=== PATIENT | female | born 1980 | race Caucasian/White ===

== ENCOUNTER 2021-09-29 12:51 | Inpatient (IN) ==
[2021-09-29 13:31] LABS: Basophils # 0.1 K/mcL (0.0-0.2); Basophils % 0.4 %; Eosinophils # 0.1 K/mcL (0.0-0.6); Eosinophils % 0.9 %; Hemoglobin 13.8 g/dL (11.5-15.4); Immature Granulocytes % 0.6 % (0-4); Lymphocytes # 4.1 K/mcL (0.6-4.6); Lymphocytes % 28.9 %; Mean Corpuscular HGB Conc 32.1 g/dL (31.6-35.5); Mean Corpuscular Hemoglobin 27.4 pg (28.0-33.3); Mean Corpuscular Volume 85.5 fL (83.0-100.0); Mean Platelet Volume 9.1 fL (9.4-12.4); Monocytes # 0.9 K/mcL (0.0-1.3); Monocytes % 6.3 %; Neutrophils # 8.8 K/mcL (1.6-8.9); Platelet Count 538 K/mcL (140-400); Red Blood Count 5.03 M/mcL (3.82-4.97); Red Cell Distribution Width 14.4 % (11.5-14.5); Segmented Neutrophils % 62.9 %; White Blood Count 14.1 K/mcL (4.3-11.1)
[2021-09-29 14:00] LABS: Troponin I 2.04 ng/mL (< 0.04)
[2021-09-29 14:06] LABS: BUN/Creatinine Ratio 10 (6-26); Blood Urea Nitrogen 9 mg/dL (6-20); Calcium 9.9 mg/dL (8.6-10.3); Carbon Dioxide 26 mEq/L (23-29); Chloride 102 mEq/L (98-107); Glucose 125 mg/dL (70-105); Osmolality,Calculated 282 (280-300); Potassium 3.8 mEq/L (3.5-5.1); Sodium 136 mEq/L (136-145); eGFR For African Americans > 60 (> 60); eGFR For Non-African Americans > 60 (> 60)
[2021-09-29] MEDS ORDERED: Aspirin 81 MG TAB.CHEW PO ONE (14:09)
[2021-09-29 14:12] LABS: INR 1.1; Prothrombin Time 12.1 Seconds (9.4-12.1)
[2021-09-29 14:15] LABS: Activated Partial Thrombo Time 33.1 Seconds (26.0-36.0)
[2021-09-29] MEDS ORDERED: *HR* Heparin 5,000 UNIT/ML VIAL IVP ONE (15:02)
[2021-09-29] MEDS ORDERED: *HR* Heparin 5,000 UNIT/ML VIAL IVP PRN ×2 (15:02)
[2021-09-29] MEDS ORDERED: Heparin 25,000UNIT/250ML 1/2NS 25,000 UNIT/250 ML IV.SOLN IVC SCH (15:15)
[2021-09-29 15:48] LABS: Hematocrit 40.2 % (35.3-44.9); Hemoglobin 12.8 g/dL (11.5-15.4); Mean Corpuscular HGB Conc 31.8 g/dL (31.6-35.5); Mean Corpuscular Hemoglobin 27.2 pg (28.0-33.3); Mean Corpuscular Volume 85.5 fL (83.0-100.0); Mean Platelet Volume 9.2 fL (9.4-12.4); Platelet Count 534 K/mcL (140-400); Red Cell Distribution Width 14.1 % (11.5-14.5); White Blood Count 14.6 K/mcL (4.3-11.1)
[2021-09-29 15:53] LABS: INR 1.1; Prothrombin Time 12.1 Seconds (9.4-12.1)
[2021-09-29 15:55] LABS: Heparin anti-factor XA UFH < 0.04 IU/mL (0.30-0.70)
[2021-09-29] MEDS ORDERED: Nitroglycerin 0.4 MG PATCH.TD24 TD ONE (16:00)
[2021-09-29] MEDS ORDERED: Naloxone 0.4 MG/ML INJ IVP PRN (16:25)
[2021-09-29] MEDS ORDERED: Ondansetron 4 MG/2 ML VIAL IVP PRN (16:35)
[2021-09-29] MEDS ORDERED: Perflutren Lipid Microsphere 1.3 ML in 0.9 % Sodium Chloride 8.7 ML IVP PRN (16:51)
[2021-09-29] MEDS: Nitroglycerin 0.4 MG TAB.SUBL SL SCH ×2 (17:05→17:56)
[2021-09-29] MEDS: Nitroglycerin 0.4 MG TAB.SUBL SL PRN ×2 (17:37→17:46)
[2021-09-29] MEDS: Acetaminophen 325 MG TABLET PO PRN (17:37)
[2021-09-29 19:48] LABS: Bilirubin,Urine Negative (Negative); Blood,Urine Negative (Negative); Clarity,Urine Clear (Clear); Color,Urine Light-Yellow (Yellow); Glucose,Urine (UA) Normal (Normal); Ketones,Urine Trace mg/dL (Negative); Leukocyte Esterase,Urine Negative (Negative); Nitrite,Urine Negative (Negative); Protein,Urine Trace mg/dL (Neg-Trace); Specific Gravity,Urine 1.028 (1.010-1.025); Urobilinogen,Urine Normal (Normal)
[2021-09-29] MEDS ORDERED: *HR* Metoprolol 5 MG/5 ML VIAL IVP ONE (21:20)
[2021-09-29] MEDS ORDERED: *HR* FentaNYL (PF) 100 MCG/2 ML VIAL ONE (23:41)
[2021-09-29] MEDS ORDERED: *HR* Midazolam HCl 2 MG/2 ML VIAL ONE (23:42)
[2021-09-29] MEDS ORDERED: Tirofiban 12.5 MG/250ML 12.5 MG/250 ML BAG ONE (23:52)
[2021-09-29] MEDS ORDERED: ISOVUE-370 200 ML INFUS..BTL ONE (23:56)
[2021-09-30] MEDS ORDERED: *HR* Ticagrelor 90 MG TABLET ONE (00:23)
[2021-09-30] MEDS ORDERED: Perflutren Lipid Microsphere 1.3 ML in 0.9 % Sodium Chloride 8.7 ML IVP PRN (00:28)
[2021-09-30] MEDS ORDERED: Tirofiban 12.5 MG/250ML 12.5 MG/250 ML BAG IVC SCH (00:30)
[2021-09-30 01:53] LABS: Basophils # 0.1 K/mcL (0.0-0.2); Basophils % 0.3 %; Eosinophils # 0.1 K/mcL (0.0-0.6); Eosinophils % 0.2 %; Hematocrit 39.5 % (35.3-44.9); Hemoglobin 12.6 g/dL (11.5-15.4); Immature Granulocytes % 0.7 % (0-4); Lymphocytes # 2.3 K/mcL (0.6-4.6); Lymphocytes % 9.8 %; Mean Corpuscular HGB Conc 31.9 g/dL (31.6-35.5); Mean Corpuscular Hemoglobin 27.4 pg (28.0-33.3); Mean Corpuscular Volume 85.9 fL (83.0-100.0); Mean Platelet Volume 9.3 fL (9.4-12.4); Monocytes % 6.3 %; Platelet Count 501 K/mcL (140-400); Red Cell Distribution Width 14.6 % (11.5-14.5); Segmented Neutrophils % 82.7 %
[2021-09-30 01:56] LABS: Monocytes # 1.5 K/mcL (0.0-1.3)
[2021-09-30 02:13] LABS: Alanine Aminotransferase 24 Units/L (7-52); Albumin 3.9 g/dL (3.5-5.7); Albumin/Globulin Ratio 1.5 (1.1-2.2); Alkaline Phosphatase 79 Units/L (34-104); Aspartate Amino Transferase 59 Units/L (13-39); BUN/Creatinine Ratio 11 (6-26); Bilirubin,Total 0.7 mg/dL (0.3-1.0); Blood Urea Nitrogen 11 mg/dL (6-20); Calcium 8.6 mg/dL (8.6-10.3); Carbon Dioxide 19 mEq/L (23-29); Chloride 103 mEq/L (98-107); Chol/HDL Ratio 3.4 (0-4.9); Cholesterol 158 mg/dL (< 200); Globulin 2.6 g/dL (2.4-3.5); Glucose 132 mg/dL (70-105); HDL Cholesterol 46 mg/dL (40-59); LDL Cholesterol,Calculated 80 mg/dL (< 100); Osmolality,Calculated 277 (280-300); Sodium 133 mEq/L (136-145); Total Protein 6.5 g/dL (6.4-8.9); Triglycerides 158 mg/dL (< 150); eGFR For African Americans > 60 (> 60); eGFR For Non-African Americans > 60 (> 60)
[2021-09-30] MEDS ORDERED: *HR* Atropine Sulfate 1 MG/10 ML SYRINGE ONE (02:17)
[2021-09-30] MEDS ORDERED: 0.9 % Sodium Chloride 1,000 ML ONE (02:52)
[2021-09-30 03:52] LABS: Basophils # 0.1 K/mcL (0.0-0.2); Basophils % 0.3 %; Eosinophils % 0.1 %; Hematocrit 35.9 % (35.3-44.9); Hemoglobin 11.5 g/dL (11.5-15.4); Immature Granulocytes % 0.5 % (0-4); Lymphocytes # 1.9 K/mcL (0.6-4.6); Lymphocytes % 10.3 %; Mean Corpuscular Hemoglobin 27.6 pg (28.0-33.3); Mean Corpuscular Volume 86.3 fL (83.0-100.0); Mean Platelet Volume 9.3 fL (9.4-12.4); Monocytes # 1.1 K/mcL (0.0-1.3); Monocytes % 6.1 %; Neutrophils # 15.2 K/mcL (1.6-8.9); Platelet Count 469 K/mcL (140-400); Red Blood Count 4.16 M/mcL (3.82-4.97); Red Cell Distribution Width 14.6 % (11.5-14.5); Segmented Neutrophils % 82.7 %; White Blood Count 18.4 K/mcL (4.3-11.1)
[2021-09-30 04:18] LABS: Alanine Aminotransferase 24 Units/L (7-52); Albumin 3.5 g/dL (3.5-5.7); Albumin/Globulin Ratio 1.4 (1.1-2.2); Alkaline Phosphatase 69 Units/L (34-104); Aspartate Amino Transferase 65 Units/L (13-39); BUN/Creatinine Ratio 11 (6-26); Bilirubin,Total 0.8 mg/dL (0.3-1.0); Blood Urea Nitrogen 10 mg/dL (6-20); Calcium 7.8 mg/dL (8.6-10.3); Carbon Dioxide 20 mEq/L (23-29); Chloride 107 mEq/L (98-107); Globulin 2.5 g/dL (2.4-3.5); Glucose 150 mg/dL (70-105); Osmolality,Calculated 280 (280-300); Sodium 134 mEq/L (136-145); Troponin I 25.06 ng/mL (< 0.04); eGFR For African Americans > 60 (> 60); eGFR For Non-African Americans > 60 (> 60)
[2021-09-30] MEDS ORDERED: Nitroglycerin 0.4 MG PATCH.TD24 TD SCH (07:30)
[2021-09-30] MEDS: *HR* Ticagrelor 90 MG TABLET PO SCH ×2 (08:35→20:02)
[2021-09-30] MEDS: Aspirin Enteric Coated 81 MG Tablet PO SCH (08:35)
[2021-09-30] MEDS: Levothyroxine 25 MCG TABLET PO SCH (08:35)
[2021-09-30] MEDS ORDERED: Aspirin 81 MG TAB.CHEW PO SCH (09:00)
[2021-09-30] MEDS: Gabapentin 100 MG CAPSULE PO SCH (12:48)
[2021-09-30] MEDS: Acetaminophen 325 MG TABLET PO PRN (12:50)
[2021-09-30] MEDS: *HR* Heparin 5,000 UNIT/ML VIAL SQ SCH (19:59)
[2021-10-01 01:55] LABS: Eosinophils % 0.6 %; Mean Corpuscular Volume 88.8 fL (83.0-100.0); Red Cell Distribution Width 15.1 % (11.5-14.5)
[2021-10-01 01:56] LABS: Basophils % 0.3 %; Eosinophils # 0.1 K/mcL (0.0-0.6); Hematocrit 37.9 % (35.3-44.9); Hemoglobin 11.6 g/dL (11.5-15.4); Immature Granulocytes % 0.4 % (0-4); Immature Platelets 1.5 % (1.1-6.1); Lymphocytes # 2.9 K/mcL (0.6-4.6); Lymphocytes % 19.9 %; Mean Corpuscular HGB Conc 30.6 g/dL (31.6-35.5); Mean Corpuscular Hemoglobin 27.2 pg (28.0-33.3); Mean Platelet Volume 9.4 fL (9.4-12.4); Monocytes # 1.3 K/mcL (0.0-1.3); Monocytes % 8.9 %; Red Blood Count 4.27 M/mcL (3.82-4.97); Segmented Neutrophils % 69.9 %; White Blood Count 14.5 K/mcL (4.3-11.1)
[2021-10-01 02:10] LABS: BUN/Creatinine Ratio 18 (6-26); Blood Urea Nitrogen 16 mg/dL (6-20); Calcium 8.3 mg/dL (8.6-10.3); Carbon Dioxide 19 mEq/L (23-29); Chloride 107 mEq/L (98-107); Glucose 121 mg/dL (70-105); Osmolality,Calculated 282 (280-300); Potassium 4.5 mEq/L (3.5-5.1); Sodium 135 mEq/L (136-145); eGFR For African Americans > 60 (> 60); eGFR For Non-African Americans > 60 (> 60)
[2021-10-01 02:14] LABS: Neutrophils # 10.1 K/mcL (1.6-8.9); Platelet Count 412 K/mcL (140-400)
[2021-10-01] MEDS: Levothyroxine 25 MCG TABLET PO SCH (06:09)
[2021-10-01] MEDS: *HR* Heparin 5,000 UNIT/ML VIAL SQ SCH ×2 (06:09→18:26)
[2021-10-01] MEDS: Acetaminophen 325 MG TABLET PO PRN ×2 (06:40→12:35)
[2021-10-01] MEDS: *HR* Ticagrelor 90 MG TABLET PO SCH ×2 (09:17→21:04)
[2021-10-01] MEDS: Gabapentin 100 MG CAPSULE PO SCH (09:18)
[2021-10-01] MEDS: BuPROPion XL (24 HR) 150 MG TABLET PO SCH (09:18)
[2021-10-01] MEDS: Aspirin Enteric Coated 81 MG Tablet PO SCH (09:26)
[2021-10-01] MEDS ORDERED: Isosorbide MONOnitrate (24 HR) 30 MG TAB.ER.24H PO SCH (11:15)
[2021-10-01] MEDS ORDERED: Acetaminophen/Aspirin/Caffeine TABLET PO STA (18:53)
[2021-10-02] MEDS ORDERED: Acetaminophen/Aspirin/Caffeine TABLET PO ONE (05:17)
[2021-10-02 05:40] VITALS: TEMP 98.2
[2021-10-02] MEDS: Levothyroxine 25 MCG TABLET PO SCH (06:04)
[2021-10-02] MEDS: *HR* Heparin 5,000 UNIT/ML VIAL SQ SCH (06:04)
[2021-10-02 07:16] VITALS: BP 109/73; PULSE 84; O2SAT 99
[2021-10-02 07:48] LABS: Basophils # 0.1 K/mcL (0.0-0.2); Basophils % 0.5 %; Eosinophils # 0.2 K/mcL (0.0-0.6); Eosinophils % 1.2 %; Hematocrit 34.9 % (35.3-44.9); Hemoglobin 10.8 g/dL (11.5-15.4); Immature Granulocytes % 0.9 % (0-4); Lymphocytes % 23.8 %; Mean Corpuscular HGB Conc 30.9 g/dL (31.6-35.5); Mean Corpuscular Hemoglobin 26.9 pg (28.0-33.3); Mean Corpuscular Volume 86.8 fL (83.0-100.0); Mean Platelet Volume 9.2 fL (9.4-12.4); Monocytes # 1.1 K/mcL (0.0-1.3); Monocytes % 8.4 %; Neutrophils # 8.3 K/mcL (1.6-8.9); Platelet Count 433 K/mcL (140-400); Red Blood Count 4.02 M/mcL (3.82-4.97); Red Cell Distribution Width 14.9 % (11.5-14.5); Segmented Neutrophils % 65.2 %; White Blood Count 12.7 K/mcL (4.3-11.1)
[2021-10-02 08:00] LABS: BUN/Creatinine Ratio 20 (6-26); Blood Urea Nitrogen 18 mg/dL (6-20); Calcium 8.6 mg/dL (8.6-10.3); Carbon Dioxide 23 mEq/L (23-29); Chloride 107 mEq/L (98-107); Glucose 94 mg/dL (70-105); Osmolality,Calculated 284 (280-300); Potassium 4.1 mEq/L (3.5-5.1); Sodium 136 mEq/L (136-145); eGFR For African Americans > 60 (> 60); eGFR For Non-African Americans > 60 (> 60)
[2021-10-02] MEDS ORDERED: Ranolazine 500 MG TAB.ER.12H PO SCH (09:00)
[2021-10-02] MEDS ORDERED: Metoprolol XL (24 HR) Succ 25 MG TAB.ER.24H PO SCH (09:00)
[2021-10-02] MEDS: Gabapentin 100 MG CAPSULE PO SCH (09:34)
[2021-10-02] MEDS: Aspirin Enteric Coated 81 MG Tablet PO SCH (09:35)
[2021-10-02] MEDS: Acetaminophen 325 MG TABLET PO PRN (09:35)
[2021-10-02] MEDS: *HR* Ticagrelor 90 MG TABLET PO SCH (09:35)
[2021-10-02] MEDS: BuPROPion XL (24 HR) 150 MG TABLET PO SCH (11:04)
== END 2021-10-02 15:40 | disposition home or self-care (01) | DRG 247 ==
LOC: EMEROOARM 12:51 → 3BNU 12:51 → 2NNU 09-30 00:53
PROVIDERS: ADMIT General Practice; ATTEND General Practice

== ENCOUNTER 2021-11-21 10:18 | Observation (INO) ==
[2021-11-21] MEDS ORDERED: Nitroglycerin 0.4 MG TAB.SUBL SL PRN (10:34)
[2021-11-21 11:51] LABS: Basophils # 0.1 K/mcL (0.0-0.2); Basophils % 0.5 %; Eosinophils # 0.1 K/mcL (0.0-0.6); Eosinophils % 0.9 %; Hematocrit 37.8 % (35.3-44.9); Hemoglobin 11.7 g/dL (11.5-15.4); Immature Granulocytes % 0.4 % (0-4); Lymphocytes # 2.5 K/mcL (0.6-4.6); Lymphocytes % 27.9 %; Mean Corpuscular Hemoglobin 27.1 pg (28.0-33.3); Mean Corpuscular Volume 87.5 fL (83.0-100.0); Mean Platelet Volume 9.3 fL (9.4-12.4); Monocytes # 0.8 K/mcL (0.0-1.3); Monocytes % 9.1 %; Neutrophils # 5.6 K/mcL (1.6-8.9); Platelet Count 474 K/mcL (140-400); Red Blood Count 4.32 M/mcL (3.82-4.97); Red Cell Distribution Width 14.6 % (11.5-14.5); Segmented Neutrophils % 61.2 %; White Blood Count 9.1 K/mcL (4.3-11.1)
[2021-11-21 12:00] LABS: INR 1.2; Prothrombin Time 12.9 Seconds (9.4-12.1)
[2021-11-21 12:02] LABS: Activated Partial Thrombo Time 34.8 Seconds (26.0-36.0)
[2021-11-21 12:25] LABS: Alanine Aminotransferase 13 Units/L (7-52); Albumin 4.4 g/dL (3.5-5.7); Albumin/Globulin Ratio 1.6 (1.1-2.2); Alkaline Phosphatase 92 Units/L (34-104); Aspartate Amino Transferase 13 Units/L (13-39); BUN/Creatinine Ratio 12 (6-26); Bilirubin,Direct 0.2 mg/dL (0.0-0.2); Bilirubin,Indirect 0.6 mg/dL (0.0-1.0); Bilirubin,Total 0.8 mg/dL (0.3-1.0); Blood Urea Nitrogen 12 mg/dL (6-20); Calcium 9.5 mg/dL (8.6-10.3); Carbon Dioxide 22 mEq/L (23-29); Chloride 103 mEq/L (98-107); Globulin 2.7 g/dL (2.4-3.5); Glucose 72 mg/dL (70-105); Lipase 34 Units/L (11-82); Osmolality,Calculated 282 (280-300); Potassium 3.8 mEq/L (3.5-5.1); Sodium 137 mEq/L (136-145); Total Protein 7.1 g/dL (6.4-8.9); Troponin I < 0.03 ng/mL (< 0.04); eGFR For African Americans > 60 (> 60); eGFR For Non-African Americans 59 (> 60)
[2021-11-21] MEDS ORDERED: GI Cocktail 40 ML EACH PO ONE (12:55)
[2021-11-21] MEDS ORDERED: Ondansetron 4 MG/2 ML VIAL IVP PRN (13:43)
[2021-11-21] MEDS ORDERED: Naloxone 0.4 MG/ML INJ IVP PRN (13:43)
[2021-11-21] MEDS ORDERED: Melatonin 3 MG TABLET PO PRN (13:43)
[2021-11-21] MEDS ORDERED: Gabapentin 100 MG CAPSULE PO SCH ×2 (14:00→21:00)
[2021-11-21] MEDS: Pantoprazole 40 MG VIAL IVP SCH (16:34)
[2021-11-21] MEDS: Ranolazine 500 MG TAB.ER.12H PO SCH (20:02)
[2021-11-21] MEDS: *HR* Ticagrelor 90 MG TABLET PO SCH (20:04)
[2021-11-21] MEDS ORDERED: Ranolazine 500 MG TAB.ER.12H PO SCH (21:00)
[2021-11-22 01:54] LABS: Basophils % 0.3 %; Eosinophils # 0.1 K/mcL (0.0-0.6); Eosinophils % 0.7 %; Hematocrit 33.8 % (35.3-44.9); Hemoglobin 10.9 g/dL (11.5-15.4); Immature Granulocytes % 0.3 % (0-4); Lymphocytes # 2.5 K/mcL (0.6-4.6); Lymphocytes % 20.3 %; Mean Corpuscular HGB Conc 32.2 g/dL (31.6-35.5); Mean Corpuscular Hemoglobin 27.9 pg (28.0-33.3); Mean Corpuscular Volume 86.4 fL (83.0-100.0); Mean Platelet Volume 9.1 fL (9.4-12.4); Monocytes % 8.4 %; Neutrophils # 8.5 K/mcL (1.6-8.9); Platelet Count 437 K/mcL (140-400); Red Blood Count 3.91 M/mcL (3.82-4.97); Red Cell Distribution Width 14.8 % (11.5-14.5); White Blood Count 12.1 K/mcL (4.3-11.1)
[2021-11-22 02:12] LABS: INR 1.1; Prothrombin Time 12.8 Seconds (9.4-12.1)
[2021-11-22 02:14] LABS: Alanine Aminotransferase 11 Units/L (7-52); Albumin 3.7 g/dL (3.5-5.7); Albumin/Globulin Ratio 1.2 (1.1-2.2); Alkaline Phosphatase 74 Units/L (34-104); Aspartate Amino Transferase 11 Units/L (13-39); BUN/Creatinine Ratio 17 (6-26); Bilirubin,Total 0.8 mg/dL (0.3-1.0); Blood Urea Nitrogen 17 mg/dL (6-20); Calcium 8.7 mg/dL (8.6-10.3); Carbon Dioxide 24 mEq/L (23-29); Chloride 105 mEq/L (98-107); Chol/HDL Ratio 3.4 (0-4.9); Cholesterol 123 mg/dL (< 200); Glucose 156 mg/dL (70-105); HDL Cholesterol 36 mg/dL (40-59); LDL Cholesterol,Calculated 61 mg/dL (< 100); Magnesium 1.9 mg/dL (1.6-2.6); Osmolality,Calculated 287 (280-300); Potassium 4.5 mEq/L (3.5-5.1); Sodium 136 mEq/L (136-145); Total Protein 6.7 g/dL (6.4-8.9); Triglycerides 132 mg/dL (< 150); eGFR For African Americans > 60 (> 60); eGFR For Non-African Americans 59 (> 60)
[2021-11-22] MEDS ORDERED: Acetaminophen 325 MG TABLET PO ONE (03:50)
[2021-11-22] MEDS: Pantoprazole 40 MG VIAL IVP SCH (05:39)
[2021-11-22] MEDS ORDERED: Levothyroxine 25 MCG TABLET PO SCH (06:30)
[2021-11-22] MEDS ORDERED: Perflutren Lipid Microsphere 1.3 ML in 0.9 % Sodium Chloride 8.7 ML IVP PRN (08:18)
[2021-11-22] MEDS: Ranolazine 500 MG TAB.ER.12H PO SCH (08:25)
[2021-11-22] MEDS: *HR* Ticagrelor 90 MG TABLET PO SCH (08:25)
[2021-11-22] MEDS ORDERED: Acetaminophen 325 MG TABLET PO PRN (08:34)
[2021-11-22] MEDS ORDERED: Metoprolol XL (24 HR) Succ 25 MG TAB.ER.24H PO SCH (09:00)
[2021-11-22] MEDS ORDERED: Aspirin Enteric Coated 81 MG Tablet PO SCH (09:00)
[2021-11-22] MEDS ORDERED: BuPROPion XL (24 HR) 150 MG TABLET PO SCH (09:00)
[2021-11-22 10:25] VITALS: TEMP 98.2
[2021-11-22] MEDS ORDERED: *HR* Heparin 10,000 UNIT/10 ML VIAL ONE (12:51)
[2021-11-22] MEDS ORDERED: ISOVUE-370 200 ML INFUS..BTL ONE (12:51)
[2021-11-22] MEDS ORDERED: Nitroglycerin 1,000 MCG/5 ML VIAL IV ONE (12:51)
[2021-11-22] MEDS ORDERED: 0.9 % Sodium Chloride 2,000 ML ONE (12:51)
[2021-11-22] MEDS ORDERED: Heparin 1,000 UNITS/500 mL 500 ML ONE (12:51)
[2021-11-22] MEDS ORDERED: *HR* Midazolam HCl 2 MG/2 ML VIAL ONE (13:22)
[2021-11-22] MEDS ORDERED: *HR* FentaNYL (PF) 100 MCG/2 ML VIAL ONE (13:22)
[2021-11-22] MEDS ORDERED: Ketorolac 30 MG/ML VIAL IVP ONE (13:38)
[2021-11-22 14:42] VITALS: O2SAT 97
[2021-11-22 17:03] VITALS: BP 129/87; PULSE 75
== END 2021-11-22 17:16 | disposition home or self-care (01) ==
LOC: EMEROOARM 10:18 → 3BNU 10:18
PROVIDERS: ADMIT Internal Medicine; ATTEND Internal Medicine

== ENCOUNTER 2022-03-07 13:58 | Observation (INO) ==
[2022-03-07 16:23] LABS: Basophils # 0.1 K/mcL (0.0-0.2); Basophils % 0.4 %; Eosinophils # 0.1 K/mcL (0.0-0.6); Eosinophils % 0.9 %; Hematocrit 34.5 % (35.3-44.9); Hemoglobin 10.3 g/dL (11.5-15.4); Immature Granulocytes % 0.5 % (0-4); Lymphocytes # 4.2 K/mcL (0.6-4.6); Lymphocytes % 27.3 %; Mean Corpuscular HGB Conc 29.9 g/dL (31.6-35.5); Mean Corpuscular Hemoglobin 25.1 pg (28.0-33.3); Mean Corpuscular Volume 84.1 fL (83.0-100.0); Monocytes # 1.2 K/mcL (0.0-1.3); Monocytes % 7.7 %; Neutrophils # 9.7 K/mcL (1.6-8.9); Platelet Count 581 K/mcL (140-400); Red Cell Distribution Width 14.6 % (11.5-14.5); Segmented Neutrophils % 63.2 %; White Blood Count 15.3 K/mcL (4.3-11.1)
[2022-03-07 16:31] LABS: INR 1.3
[2022-03-07 16:33] LABS: Activated Partial Thrombo Time 35.1 Seconds (26.0-36.0)
[2022-03-07 16:43] LABS: BUN/Creatinine Ratio 13 (6-26); Blood Urea Nitrogen 13 mg/dL (6-20); Calcium 9.2 mg/dL (8.6-10.3); Carbon Dioxide 23 mEq/L (23-29); Chloride 104 mEq/L (98-107); Glucose 79 mg/dL (70-105); Osmolality,Calculated 281 (280-300); Potassium 3.7 mEq/L (3.5-5.1); Sodium 136 mEq/L (136-145); eGFR For African Americans > 60 (> 60); eGFR For Non-African Americans > 60 (> 60)
[2022-03-07 16:44] LABS: Troponin I < 0.03 ng/mL (< 0.04)
[2022-03-07] MEDS ORDERED: Iopamidol - 370 500 ML MLS IVP ONE (20:17)
[2022-03-07] MEDS ORDERED: Morphine Sulfate 2 MG/ML SYRINGE IVP ONE (22:48)
[2022-03-07] MEDS ORDERED: Aspirin 325 MG TABLET PO ONE (22:48)
[2022-03-07] MEDS ORDERED: Nitroglycerin 0.4 MG TAB.SUBL SL PRN (22:48)
[2022-03-07] MEDS ORDERED: Melatonin 3 MG TABLET PO PRN (23:39)
[2022-03-07] MEDS ORDERED: Naloxone 0.4 MG/ML INJ IVP PRN (23:39)
[2022-03-07] MEDS ORDERED: Ondansetron ODT 4 MG TAB.RAPDIS SL PRN (23:39)
[2022-03-07] MEDS ORDERED: 0.9 % Sodium Chloride 1,000 ML IVC SCH (23:45)
[2022-03-08] MEDS: Acetaminophen 325 MG TABLET PO PRN ×2 (00:15→06:50)
[2022-03-08] MEDS ORDERED: Gabapentin 100 MG CAPSULE PO SCH (01:15)
[2022-03-08] MEDS: *HR* Ticagrelor 90 MG TABLET PO SCH ×2 (01:33→08:35)
[2022-03-08] MEDS: Ranolazine 500 MG TAB.ER.12H PO SCH ×2 (01:35→08:35)
[2022-03-08 01:44] LABS: Bacteria,Urine Few per hpf (None-Few); Bilirubin,Urine Negative (Negative); Blood,Urine Negative (Negative); Clarity,Urine Clear (Clear); Color,Urine Yellow (Yellow); Glucose,Urine (UA) Normal (Normal); Ketones,Urine Trace mg/dL (Negative); Leukocyte Esterase,Urine Small (Negative); Mucus,Urine Few per lpf (None-Few); Nitrite,Urine Negative (Negative); Protein,Urine 30 mg/dL (Neg-Trace); Specific Gravity,Urine > 1.030 (1.010-1.025); Squamous Epithelial Cell,Urine Many per hpf (None-Few)
[2022-03-08 04:53] VITALS: TEMP 97.9; O2SAT 100
[2022-03-08 06:43] VITALS: BP 126/82; PULSE 72
[2022-03-08 06:57] LABS: Hemoglobin 8.9 g/dL (11.5-15.4); Mean Corpuscular HGB Conc 29.7 g/dL (31.6-35.5); Mean Corpuscular Hemoglobin 24.8 pg (28.0-33.3); Mean Corpuscular Volume 83.6 fL (83.0-100.0); Mean Platelet Volume 9.1 fL (9.4-12.4); Platelet Count 483 K/mcL (140-400); Red Blood Count 3.59 M/mcL (3.82-4.97); Red Cell Distribution Width 14.7 % (11.5-14.5); White Blood Count 10.3 K/mcL (4.3-11.1)
[2022-03-08] MEDS ORDERED: BuPROPion XL (24 HR) 150 MG TABLET PO SCH (09:00)
[2022-03-08] MEDS ORDERED: Aspirin 81 MG TAB.CHEW PO SCH (09:00)
[2022-03-08 11:41] LABS: BUN/Creatinine Ratio 15 (6-26); Blood Urea Nitrogen 13 mg/dL (6-20); Calcium 8.3 mg/dL (8.6-10.3); Carbon Dioxide 23 mEq/L (23-29); Chloride 108 mEq/L (98-107); Chol/HDL Ratio 2.8 (0-4.9); Cholesterol 112 mg/dL (< 200); Glucose 78 mg/dL (70-105); HDL Cholesterol 40 mg/dL (40-59); LDL Cholesterol,Calculated 57 mg/dL (< 100); Magnesium 1.8 mg/dL (1.6-2.6); Osmolality,Calculated 281 (280-300); Phosphorous 2.6 mg/dL (2.7-4.5); Sodium 136 mEq/L (136-145); Triglycerides 74 mg/dL (< 150); eGFR For African Americans > 60 (> 60); eGFR For Non-African Americans > 60 (> 60)
[2022-03-08 11:53] LABS: Thyroid Stimulating Hormone 3.643 mcIU/mL (0.340-5.600)
[2022-03-08 11:55] LABS: Estimated Average Glucose 114 mg/dl; Hemoglobin A1C 5.6 %
== END 2022-03-08 12:18 | disposition home or self-care (01) ==
LOC: EMEROOARM 13:58 → 2NENU 13:58 → EMEROOARM 20:58 → SUATTDRO 23:55 → 2NENU 03-08 00:39
PROVIDERS: ADMIT Internal Medicine; ATTEND Internal Medicine